=== PATIENT | male | born 1995 ===

== ENCOUNTER 2022-10-07 11:37 | Emergency (ER) | payer OTHER, SELFPAY ==
[2022-10-07 11:56] VITALS: BP 149/82; PULSE 90; RESP 18; TEMP 37.1; O2SAT 98; BMI 31.0
--- NOTE | 2022-10-07 12:00 | DI.RAD.S_ITS ---
PROCEDURE: XR ANKLE RT MIN 3V INDICATIONS: Injured R ankle playing basketball TECHNIQUE: 3 views of the ankle were acquired. COMPARISON: None. FINDINGS: Bones: No fractures or dislocations. Ankle mortise is normally aligned. No suspicious bony lesions. Soft tissues: No tibiotalar joint effusion. Achilles tendon appears normal. IMPRESSION: No visualized acute fracture or dislocation. However, if clinical concern and/or pain persist, short interval imaging followup in 7-10 days is recommended, as occult injury cannot be definitively excluded. Dictated by: Layne Lam M.D. on 10/07/2022 at 12:35 Approved by: Layne Lam M.D. on 10/07/2022 at 12:35
[2022-10-07 13:01] VITALS: BP 145/84; PULSE 94; RESP 14; O2SAT 97
--- NOTE | 2022-10-07 13:03 | ED.LOWEXIN ---
HPI - Extremity Injury (Lower) General Chief Complaint: Extremity Injury, Lower Stated Complaint: R/possible sprained ankle Time Seen by Provider: 10/07/22 12:49 Source: patient Mode of arrival: Wheelchair History of Present Illness HPI Narrative: 27-year-old male with no reported past medical history presents to the ED with 2 days of right ankle pain. Patient states that he has been playing basketball over the past 2 days, started feeling some discomfort yesterday at the back of his right foot. Patient states it is painful to bear weight and walk on it. Patient denies numbness, tingling, weakness. Related Data Allergies Allergy/AdvReac Type Severity Reaction Status Date / Time No Known Drug Allergies Allergy Verified 10/07/22 12:00 Review of Systems Review of Systems ROS Unobtainable: All systems reviewed & are unremarkable except as noted in HPI and below Constitutional Constitutional: Denies chills, Denies fatigue, Denies fever(s), Denies frequent falls, Denies lethargy and Denies weakness Eyes Eyes: Denies change in vision, Denies eye discharge, Denies irritation and Denies loss of vision ENT Ears, Nose, Mouth, and Throat: Denies change in voice, Denies dizziness, Denies neck pain, Denies sore throat and Denies throat swelling Cardiovascular Cardiovascular: Denies chest pain, Denies irregular heart rhythm, Denies lightheadedness, Denies palpitations, Denies dyspnea, Denies dyspnea on exertion and Denies orthopnea Respiratory Respiratory: Denies cough, Denies dyspnea, Denies dyspnea on exertion and Denies wheezing Gastrointestinal Gastrointestinal: Denies abdominal pain, Denies change in bowel habits, Denies diarrhea, Denies nausea and Denies vomiting Genitourinary Genitourinary: Denies hematuria, Denies flank pain, Denies urinary incontinence and Denies urinary urgency Musculoskeletal Musculoskeletal: Denies back pain, Denies muscle weakness, Denies neck pain, Denies numbness and Denies tingling Comments: Right ankle pain Integumentary/Breasts Skin/Breast: Denies pruritus, Denies erythema, Denies rash and Denies wounds Neurologic Neurologic: Denies behavioral changes, Denies confusion, Denies dizziness, Denies frequent falls, Denies loss of vision, Denies numbness, Denies tingling and Denies weakness Psychiatric Psychiatric: Denies anxiety, Denies behavioral changes, Denies confusion, Denies depression, Denies homicidal ideation and Denies suicidal ideation Endocrine Endocrine: Denies fatigue, Denies flushing and Denies palpitations Hematologic/Lymphatic Hematologic/Lymphatic: Denies easy bruising Allergic/Immunologic Allergic/Immunologic: Denies urticaria, Denies throat swelling and Denies wheezing Patient History Social History Smoking Status: Never smoker Smoking Status: Never smoker alcohol intake frequency: a few times a month Substance Use Type: does not use Exam Narrative Exam Narrative: Const General:?cooperative, healthy appearing and comfortable [facility] Head:?normal to inspection Ears:?hearing grossly normal bilaterally Nose:?external nose normal Face and sinus:?normal facial exam and sinuses nontender Mouth:?oral mucosae normal Throat:?posterior oropharynx normal Eyes General:?appearance normal, both eyes and all related structures Neck Neck:?normal visual inspection and no lymphadenopathy noted Resp Effort & Inspection:?normal respiratory effort Auscultation:?clear to auscultation bilaterally Cardio Rate:?regular rate Rhythm:?regular rhythm Musculoskeletal There is tenderness to palpation of the posterior ankle. No deformities, bruising. No tenderness to palpation of the lateral or medial malleoli. No mid foot tenderness. No tenderness to the base of the 5th metatarsal. Full range of motion. Patient unable to bear weight, limited by pain. Sensation is intact. Patient is neurovascularly intact. Neuro General:?patient alert, patient awake and patient oriented x3 Initial Vital Signs Initial Vital Signs: Vital Signs Temperature 98.7 F 10/07/22 11:56 Pulse Rate 90 10/07/22 11:56 Respiratory Rate 18 10/07/22 11:56 Blood Pressure 149/82 H 10/07/22 11:56 Pulse Oximetry 98 10/07/22 11:56 Oxygen Delivery Method Room Air 10/07/22 11:56 Course Orders Ordered: ED Orders 10/07/22 12:00 XR ankle RT min 3V Stat Vital Signs Vital signs: Vital Signs - 8 hr 10/07/22 11:56 10/07/22 13:01 Temperature 98.7 F Pulse Rate 90 94 H Respiratory Rate 18 14 Blood Pressure 149/82 H 145/84 H Pulse Oximetry 98 97 Oxygen Delivery Method Room Air Room Air MDM - Extremity Injury (Lower) MDM Narrative Medical decision making narrative: 27-year-old male with no reported past medical history presents to the ED with 2 days of right ankle pain. Concern for fracture/dislocation versus musculoskeletal sprain/strain. X-ray was obtained with no acute findings. Patient's symptoms likely due to a musculoskeletal sprain/strain. Recommend RICE, heat, ibuprofen, PCP follow-up. ED return precautions were discussed with patient. Patient verbalized understanding. Medical records reviewed: Yes Discharge Plan Departure Patient Disposition: Home Clinical Impression: Ankle sprain and strain Instructions: DI for Ankle Sprain Activity Restrictions/Additional Instructions: You were evaluated in the ED today for right-sided ankle pain. Your x-ray did not show any fractures or dislocations. Your symptoms are likely due to a musculoskeletal sprain or strain, could possibly be caused by your shoes impinging on the back of your foot while playing basketball. Please elevate your foot, apply ice for the next 24 hours. You may apply heat packs after 24 hours. You may take 800 mg of ibuprofen with food 3 times a day for pain. Please follow-up with your PCP in 3-5 days for further evaluation. Return to the ED if you have worsening symptoms, numbness, tingling, weakness. Referrals: Miscellaneous,Doctor, [Primary Care Provider] - Stand Alone Forms: Patient Portal/API
== END 2022-10-07 13:07 | disposition home or self-care (01) ==
PROVIDERS: Emergency Provider Student in an Organized Health Care Education/Training Program
DX: S93.401A Sprain of unspecified ligament of right ankle, initial encounter (principal); S96.911A Strain of unspecified muscle and tendon at ankle and foot level, right foot, initial encounter; Y93.67 Activity, basketball
CPT/HCPCS: 73610; 99281; 99283